=== PATIENT | male | born 1955 | race Asian ===

== ENCOUNTER 2022-08-04 16:59 | Emergency (ER) | payer MEDICAID ==
[~2022-08-04] VITALS: Ht 157.5 cm; Wt 59.0 kg
[2022-08-04 17:11] VITALS: BP 132/86
== END 2022-08-04 18:42 | disposition home or self-care (01) ==
LOC: ER 17:09
DX: R05.9 Cough, unspecified (principal); R76.11 Nonspecific reaction to tuberculin skin test without active tuberculosis
CPT/HCPCS: 71046; 99283